=== PATIENT | female | born 1990 | race African-American/Black ===

== ENCOUNTER 2017-07-15 01:31 | Emergency (ER) | payer OTHER ==
[~2017-07-15 01:31] MED LIST: ELIMITE60 GM TOP; KEFLEX500 MG PO
[2017-07-15 03:16] LABS: URINE SOURCE CLEAN CATCH
[2017-07-15 03:20] LABS: URINE APPEARANCE CLOUDY; URINE BILIRUBIN NEG (NEG); URINE BLOOD NEG (NEG); URINE COLOR YELLOW; URINE GLUCOSE NEG (NEG); URINE KETONE 1+ (NEG); URINE LEUKOCYTE ESTERASE 3+ (NEG); URINE NITRATE NEG (NEG); URINE PROTEIN NEG (NEG); URINE SPECIFIC GRAVITY 1.018 (1.003-1.035); URINE UROBILINOGEN 0.2 MG/DL (NEG)
[2017-07-15 03:23] LABS: CULTURE INDICATED? YES; URBCS1 AUWI 0-2 /[HPF] (0-2); URINE BACTERIA AUWI 3+ (NEGATIVE); URINE SQUAMOUS EPITHELIAL CELL MANY /[HPF]; UWBCS1 AUWI 25-50 (0-5)
[2017-07-17 06:12] LABS: CHLAMYDIA TRACH Not Detected (Not Detected); N GONOR Not Detected (Not Detected)
== END 2017-07-15 05:00 | disposition home or self-care (01) ==
LOC: CED 01:31 → CFTX 04:57 → CED 04:57
PROVIDERS: Nurse Practitioner
DX: N39.0 Urinary tract infection, site not specified (principal)
CPT/HCPCS: 81003; 84703; 87086; 87491; 87591; 87808; 87905; 99284